=== PATIENT | male | born 1950 | race Caucasian/White ===

== ENCOUNTER 2017-07-15 15:15 | Outpatient (RCR) | payer MEDICARE, OTHER ==
[2015-09-15 08:25] VITALS: BMI 33.7
--- NOTE | 2017-05-24 12:01 | PT PLAN OF CARE ---
Physician: Dr. 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 PT will assist in transition to traditional dressing changes once vac is able to be discontinued. GOALS: 1. Wound to remain free of signs or symptoms of infection- Met/ongoing 2. Pt to maintain wound vac on and functioning properly with no cessation in suction greater than 2 hours without prompt resolution- Met/ongoing 3. Wound base to demo 100% granulation in order to fill void created by surgical intervention- progressing very well with not bony end feel noted now. 4. Epithelium to close from the edges inward with use of vac and transition to traditional dressings once vac is able to be discontinued. -progressing PATIENT'S GOAL: Wound to heal without further complications. Status of Patient's Goals: progressing Patient Compliance: good overall with vac; difficulty with edema and breathing Prognosis: Good Reasons for continuing therapy: Wound is healing well with no complications related to signs or symptoms of infection, however, periwound skin has become irritated and blistered. This has necessitated a hold with vac application and transition to traditional dressings temporarily this weekend. Pt is managing wound vac appropriately and arrives for twice weekly vac care as scheduled. If periwound can tolerate further application, wound would certainly continue to benefit from this negative pressure wound therapy to encourage improved blood flow to the site and facilitate granulation in base of wound to minimize depth of defect present follow surgical I&D of infected tissue. Pt is working with PCP and center medical director regarding increased edema in B) LE's as well as increased difficulty with breathing and recent diagnosis with antibiotics for pneumonia. Pt should be on O2 per MD orders, but frequently arrives for wound care appointments without a tank. Post surgical wound site measures: 2.3cm L x 3.2cm W x 1cm D with bone and tendon exposed in depth of wound. Wound measurements (04/18/17): 0.9cm L x 1.9cm W x 0.5cm D with excellent granulation base, and no exposure of tendon or bone noted at this time. Current wound measurements (05/23/17): 0.8cm L x 1.6cm W x 0.3cm D. 90% granulation following debridement. Thank you for this referral. If you have any questions, comments, or concerns about this report or plan, please contact me at . H. Flor Tate, PT, MPT MTDD
--- NOTE | 2017-06-13 00:13 | PT PLAN OF CARE ---
Physician: Dr. 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 Treatment Diagnosis: see above Date of Onset: 02/10/17 Date of Initial Evaluation: 05/23/17 Date patient was last seen: 06/10/17 Number of treatments: 18 Number of cancellations/No shows: 0 INTERVENTIONS: Patient previously being seen for twice weekly wound vac dressing changes to manage drainage and encourage granulation in wound base. Wound vac now discontinued and currently, conservative, selective, sharps debridement is being completed, in order to remove any non-viable tissue. Selection of advance wound care products to manage original wound site effectively, while now also addressing new wounds to B) lower legs related to excessive edema and weeping. GOALS: 1. Wound to remain free of signs or symptoms of infection- Met/ongoing 2. Pt to maintain wound vac on and functioning properly with no cessation in suction greater than 2 hours without prompt resolution- Met and D/C. 3. Wound base to demo 100% granulation in order to fill void created by surgical intervention- progressing very well with 95% granulation tissue now. 4. Epithelium to close from the edges inward with use of vac and transition to traditional dressings once vac is able to be discontinued. -progressing with traditional dressing application now. PATIENT'S GOAL: Wound to heal without further complications.- Not Met; Pt experiencing new wounds to B) lower legs related to excessive edema, venous insufficiency and fluid retention. Status of Patient's Goals: Original wound improving, however, new onset of B) lower leg wounds related to excessive edema and venous insufficiency. Patient Compliance: Fair; Unable to elevate LE's above heart due to breathing difficulties. Pt unable to sleep in supine position, but rather sleeps in a recliner with supplemental O2. Prognosis: Good Reasons for continuing therapy: Worsening wounds to B) LE's related to excessive edema. Non-excisional debridement completed with the use of tweezers to a depth of subcutaneous tissue in order to remove adhered slough. Wounds cleansed with sterile saline and vasaline gauze applied to protect. Coflex 2 stage lite compression wraps applied to B) LE's for edema management per MD order. R) 4th and 5th MTP joint site: 0.8cm L x 1.6cm W x 0.3cm D with 95% granulation base and edges migrating inward well. Multiple wounds on B) lower legs as listed: R) anterior terrell listed above: 3cm L x 3cm W x 0.2cm D R) medial terrell: 0.5cm L x 0.5cm W x 0.2cm D R) superior terrell: 1cm L x 2cm D x 0.2cm D L) Medial calf: 2cm L x 1.5cm W x 0.2cm D L) Medial Inferior calf: 1cm L x 1cm W x 0.2cm D L) Medial distal calf: 1.5cm L x 3cm W x 0.2cm D L) Medial Superior calf: 0.5cm L x 1.5cm W x 0.2cm D L) Distal Anterior Calf: 2cm L x 2cm W x 0.2cm D L) superior lateral calf: 5cm L x 1cm W x 0.2cm D (scratch) Thank you for this referral. If you have any questions, comments, or concerns about this report or plan, please contact me at . H. Flor Tate PT, MPT MTDD
[~2017-07-15 15:15] MED LIST: ALBU2.5V36 INH; AMLO-96 PO; ASPI81TA94 PO; CHLO50TA22 PO; CINN500C12 PO; DICL100G39; DOCU-416 PO; HUM100IN SUBQ; HUM100VI2 SUBQ; INSU100C10; INSU100C14 SQ; LEVI SUBQ; LEVO-85 PO; LINA5TAB PO; METR-159 PO; NAPR220C12 PO; OXYC-373 PO; OXYC-865 PO; ROSU20TA23 PO; ROSU5TAB8 PO; VALS1TAB4 PO
== END 2017-07-15 18:00 | disposition home or self-care (01) ==
LOC: PT 15:15
PROVIDERS: ATTEND Family Medicine
DX: Z48.1 Encounter for planned postprocedural wound closure (principal); T81.89XD Other complications of procedures, not elsewhere classified, subsequent encounter; L97.519 Non-pressure chronic ulcer of other part of right foot with unspecified severity; Z89.421 Acquired absence of other right toe(s); E11.9 Type 2 diabetes mellitus without complications; N18.5 Chronic kidney disease, stage 5; I87.2 Venous insufficiency (chronic) (peripheral)